=== PATIENT | male | born 1960 | race Caucasian/White ===

== ENCOUNTER → 2020-02-18 16:14 | Outpatient (BNVA) | payer OTHER, SELFPAY | PROVIDERS: Family Provider Internal Medicine; Visit Provider Nurse Practitioner Family | DX: Z11.59 Encounter for screening for other viral diseases (principal); J06.9 Acute upper respiratory infection, unspecified | CPT/HCPCS: 87635 ==

== ENCOUNTER → 2021-07-07 16:33 | Outpatient (BNVA) | payer BC, SELFPAY | PROVIDERS: Family Provider Internal Medicine; Visit Provider Nurse Practitioner Family | DX: R06.02 Shortness of breath (principal) | CPT/HCPCS: 71046 ==

== ENCOUNTER 2022-11-08 06:48 | Outpatient (CLI) | payer BC, SELFPAY ==
[2022-11-08 07:00] VITALS: BMI 37.3
--- NOTE | 2022-11-08 07:01 | ECG_ITS ---
[facility] Test Date: 2022-11-08 Pat Name: Maxi Gibson Department: Room: Gender: Male Computer Security Coordinator: : 1960 Requested By: Vick Christopher Order Number: [id number] Jerica MD: Diane Huang M.D. Interpretive Statements NAME OF STUDY: LEXISCAN SESTAMIBI STRESS TEST INDICATION: [Angina] PROCEDURE: At the baseline, the blood pressure was 148/85 mm Hg with a heart rate of 63 bpm. The electrocardiogram showed sinus rhythm, normal axis. Low QRS voltage in precordial leads. Incomplete RBBB. Non specific T wave abnormality. ??? The Lexiscan was infused over a period of 20 seconds. A total of 0.4 milligrams of Lexiscan was infused. The stress phase was continued for a total of 5 minutes. Heart rate at the end of the stress phase was 79 bpm with a blood pressure of 115/83 mm Hg. The EKG at the peak infusion revealed no significant ST-T wave changes. ??? Sestamibi was injected 20 seconds after the Lexiscan infusion. ??? Blood pressure at the end of the recovery phase was 125/67 mm Hg with a heart rate of 79 beats per minute. ??? CONCLUSION: 1. No significant EKG changes with the LexiScan infusion. 2. No LexiScan induced chest pain or cardiac arrhythmia. 3. Normal blood pressure and heart rate response. 4. Sestamibi/sestamibi perfusion scan pending; see separate report. Electronically Signed On 11-12-2022 10:44:52 CDT by Diane Huang M.D. [id number]
--- NOTE | 2022-11-08 07:02 | NMCV_ITS ---
NM zander perf SPECT r/s* [id number] Maxi Gibson Age: 62 Gender: M : 1960 Exam Date: 11/08/2022 07:02 Ordering Phys: Vick Barber MD Technologist: RUSLAN Walker Exam Location: [facility] Indications: ANGINA PECTORIS STRESS TEST Please see separate stress test report in [facility] for full findings IMAGE PROTOCOL Rest/Stress 1 Lexiscan Day Radiopharmaceutical Dose (mCi) Administration Site Administered by Rest: Tc-99m 10.9 IV RUSLAN Cavazos Sestamibi Stress:Tc-99m 32.9 IV RUSLAN Cavazos Sestamibi Rest: 08-Nov-2022 60 Discovery 630 Stress: 08-Nov-2022 30 Discovery 630 0.4mg Lexiscan. Images obtained in supine and prone position. SPECT RESULTS Technical Quality: Excellent Raw Data Analysis: Normal Image Corrections: No attenuation or motion correction applied Summed Stress Score: 5 Summed Rest Score: 2 Summed Difference Score: 3 PERFUSION FINDINGS Small sized perfusion abnormality of mild severity of mid inferior wall on rest images with reversibility in apical inferior and mid inferolateral levy on supine stress images. Improved tracer uptake on inferior and lateral levy on prone stress images. FUNCTIONAL RESULTS (calculated via Gated SPECT) Stress Image LV EF (%): 57 Stress EDV (mL):114 TID: 1.02 Stress ESV (mL):49 FUNCTIONAL FINDINGS: The left ventricle is normal in size. Transient Ischemia Dilatation of 1. The left ventricular ejection fraction is normal with a value of 57%. There is normal left ventricular wall thickening. Normal end-diastolic and end-systolic volumes. IMPRESSIONS 1. Small sized perfusion abnormality of mild severity of mid to apical inferior and mid inferolateral levy with improved tracer uptake on prone stress images. This may represent attenuation artifact. However small area of ischemia in right coronary artery/circumflex artery territory cannot be completely ruled out. 3. Overall left ventricular systolic function is normal without regional wall motion abnormalities, LVEF=57%. 4. EKG portion of the study will be reported separately. Diane Huang MD (Electronically Signed) Final Date: 16 November 2022 12:50 S
[2022-11-08] MEDS: regadenoson 0.4 Mg/5 ml Syringe IVP (08:45)
[2022-11-08 09:02] VITALS: BP 126/85; PULSE 76
== END 2022-11-08 06:49 | disposition home or self-care (01) ==
PROVIDERS: PCP Internal Medicine; Visit Provider Internal Medicine Cardiovascular Disease
DX: R07.9 Chest pain, unspecified (principal)
CPT/HCPCS: 36415; 78452; 93017; 96374; A9500; J2785